=== PATIENT | female | born 1985 | race Caucasian/White ===

== ENCOUNTER 2017-04-03 19:36 | Emergency (ER) | payer OTHER ==
[~2017-04-03] VITALS: Ht 160 cm; Wt 45.4 kg
[~2017-04-03 19:36] MED LIST: BENZ100C PO; CYCL10TA2 PO; HYDR-971 PO; NAPR500T PO
[2017-04-03 19:44] VITALS: BP 113/71
--- NOTE | 2017-04-03 19:49 | PHYS DOC ---
Past Medical History Past Medical History: Kidney Stone Past Surgical History: No Surgical History Alcohol Use: None Drug Use: None Adult General Chief Complaint Chief Complaint: FOOT INJURY PAIN HPI HPI Patient is a 31 year old female presents to the emergency department with complaints of left foot pain. She states yesterday a cinder block fell from a fence and struck her on the dorsal aspect of the foot. States she's been ambulatory and extremity since that time but it is with great pain if she is walking in and normal gait pattern. She states the pain lessens when she is walking on the ball of her foot. Review of Systems Review of Systems Constitutional: Denies fever or chills [] Eyes: Denies change in visual acuity, redness, or eye pain [] HENT: Denies nasal congestion or sore throat [] Respiratory: Denies cough or shortness of breath [] Cardiovascular: No additional information not addressed in HPI [] GI: Denies abdominal pain, nausea, vomiting, bloody stools or diarrhea [] : Denies dysuria or hematuria [] Musculoskeletal: Left foot pain Integument: Denies rash or skin lesions [] Neurologic: Denies headache, focal weakness or sensory changes [] Endocrine: Denies polyuria or polydipsia [] Current Medications Current Medications Current Medications Medications (Trade) Dose Ordered Sig/Laura Start Time Stop Time Status Last Admin Dose Admin Ketorolac Tromethamine (Toradol Im) 60 mg 1X ONCE 04/03/17 20:00 04/03/17 20:01 DC 04/03/17 20:13 60 MG Allergies Allergies Allergies Coded Allergies Type Severity Reaction Last Updated Verified cephalexin Allergy Unknown Nausea and Vomiting 08/30/14 No Physical Exam Physical Exam Constitutional: Well developed, well nourished, no acute distress, non-toxic appearance. [] Neck: Normal range of motion, no tenderness, supple, no stridor. [] Cardiovascular:Heart rate regular rhythm, no murmur [] Lungs & Thorax: Bilateral breath sounds clear to auscultation [] Skin: Warm, dry, no erythema, no rash. [] Extremities: Left lower extremity exam: Left knee exam unremarkable, left ankle exam unremarkable, mild tenderness to palpate over the dorsal aspect, proximal on the foot. There is no evidence of trauma. The remainder of exam unremarkable. Neurovascular intact distally. Neurologic: Alert and oriented X 3, normal motor function, normal sensory function, no focal deficits noted. [] Current Patient Data Vital Signs Vital Signs Date Time Temp Pulse Resp B/P (MAP) Pulse Ox O2 Delivery O2 Flow Rate FiO2 04/03/17 19:44 97.9 89 16 99 Room Air 97.9 EKG EKG [] Radiology/Procedures Radiology/Procedures Right foot x-ray, no acute bony changes[] Course & Med Decision Making Course & Med Decision Making In an Jose R bandage, right foot by nursing staff. Tolerated procedure well. Pertinent Labs and Imaging studies reviewed. (See chart for details) [] Dragon Disclaimer Dragon Disclaimer This electronic medical record was generated, in whole or in part, using a voice recognition dictation system. Departure Departure Impression: Primary Impression: Contusion, foot Disposition: 01 HOME, SELF-CARE Condition: STABLE Referrals: UNKNOWN PCP NAME (PCP) [facility] Patient Instructions: Contusion, RICE - Routine Care for Injuries Scripts Naproxen (NAPROSYN) 500 Mg Tablet 500 MG PO BID Y for PAIN, #20 TAB Prov: BLANCA KOHLI APRN 04/03/17 Problem Qualifiers Primary Impression: Contusion, foot Encounter type: initial encounter Laterality: right Qualified Codes: S90.31XA - Contusion of right foot, initial encounter BLANCA KOHLI APRN Apr 03, 2017 19:49
[2017-04-03] MEDS ORDERED: KETOROLAC TROMETHAMINE 60 MG/2 ML INJ. IM ONE (20:00)
[2017-04-03] MEDS ORDERED: NAPR500T PO (20:17)
--- NOTE | 2017-04-04 08:47 | RAD ---
Indication injury. Pain. AP oblique and lateral views of the left foot were obtained. There is some soft tissue swelling laterally at the metatarsal phalangeal joint of the small toe. No bony abnormality is seen
== END 2017-04-03 20:28 | disposition home or self-care (01) ==
LOC: ER 19:36
DX: S90.32XA Contusion of left foot, initial encounter (principal); Z87.442 Personal history of urinary calculi; Z88.1 Allergy status to other antibiotic agents; W20.8XXA Other cause of strike by thrown, projected or falling object, initial encounter; Y93.89 Activity, other specified; Y92.89 Other specified places as the place of occurrence of the external cause; Y99.8 Other external cause status
CPT/HCPCS: 73630; 96372; 99284; J1885

== ENCOUNTER 2017-05-29 19:09 | Emergency (ER) | payer SELFPAY ==
[~2017-05-29] VITALS: Ht 157.5 cm; Wt 45.4 kg
--- NOTE | 2017-05-29 19:56 | PHYS DOC ---
Past Medical History Past Medical History: Depression Past Surgical History: No Surgical History Alcohol Use: None Drug Use: None Adult General Chief Complaint Chief Complaint: MULTIPLE COMPLAINTS HPI HPI Patient is a 31 year old female who presents with substernal chest pain that goes to her left jaw and down her left arm. She states this started around 3 - 4:00 pm tonight, she states the pain it comes and goes, it is made worse with deep breathing. She does feel short of breath with ambulation. She denies any calf pain or tenderness. She does smoke a pack a day she's in that since the age of 18. She states her dad has a history of heart disease but unsure what kind and when it started. She denies any being on any medications. Review of Systems Review of Systems Constitutional: Denies fever or chills Eyes: Denies change in visual acuity, redness, or eye pain HENT: Denies nasal congestion or sore throat Respiratory: Denies cough or shortness of breath Cardiovascular: No additional information not addressed in HPI GI: Denies abdominal pain, nausea, vomiting, bloody stools or diarrhea : Denies dysuria or hematuria Musculoskeletal: Denies back pain or joint pain Integument: Denies rash or skin lesions Neurologic: Denies headache, focal weakness or sensory changes Endocrine: Denies polyuria or polydipsia Current Medications Current Medications Current Medications Medications (Trade) Dose Ordered Sig/Laura Start Time Stop Time Status Last Admin Dose Admin Info (Do NOT chart on this entry -- for MONITORING) 1 each PRN DAILY PRN 05/29/17 20:15 05/31/17 20:14 Iohexol (Omnipaque 300 Mg/ml) 75 ml 1X ONCE 05/29/17 20:15 05/29/17 20:16 DC 05/29/17 20:59 75 ML Ondansetron HCl (Zofran) 4 mg 1X ONCE 05/29/17 20:45 05/29/17 20:46 DC 05/29/17 20:53 4 MG Promethazine HCl/ Codeine (Phenergan With Codeine) 5 ml 1X ONCE 05/29/17 23:15 05/29/17 23:16 Allergies Allergies Allergies Coded Allergies Type Severity Reaction Last Updated Verified cephalexin Adverse Reaction Unknown Nausea and Vomiting 05/29/17 No Physical Exam Physical Exam Constitutional: Well developed, well nourished, no acute distress, non-toxic appearance. HENT: Normocephalic, atraumatic, bilateral external ears normal, oropharynx moist, no oral exudates, nose normal. Eyes: PERRLA, EOMI, conjunctiva normal, no discharge. Neck: Normal range of motion, no tenderness, supple, no stridor. Cardiovascular:Heart rate regular rhythm, no murmur, Lungs & Thorax: Bilateral breath sounds clear to auscultation, tender palpation over the chest wall Abdomen: Bowel sounds normal, soft, no tenderness, no masses, no pulsatile masses. Skin: Warm, dry, no erythema, no rash. Back: No tenderness, no CVA tenderness. Extremities: No tenderness, no cyanosis, no clubbing, ROM intact, no edema. Neurologic: Alert and oriented X 3, normal motor function, normal sensory function, no focal deficits noted. Psychologic: Affect normal, judgement normal, mood normal. Current Patient Data Vital Signs Vital Signs Date Time Temp Pulse Resp B/P (MAP) Pulse Ox O2 Delivery O2 Flow Rate FiO2 05/29/17 21:42 54 21 105/59 (74) 97 05/29/17 19:33 98.2 Room Air 98.2 Lab Values Laboratory Tests Test 05/29/17 19:30 05/29/17 20:08 Urine Collection Type Unknown Urine Color Jennifer Urine Clarity Clear Urine pH 6.0 Urine Specific [place] >=1.030 Urine Protein 30 mg/dL (NEG-TRACE) Urine Glucose (UA) Negative mg/dL (NEG) Urine Ketones (Stick) Negative mg/dL (NEG) Urine Blood Small (NEG) Urine Nitrite Negative (NEG) Urine Bilirubin Small (NEG) Urine Urobilinogen Dipstick 1.0 mg/dL (0.2 mg/dL) Urine Leukocyte Esterase Negative (NEG) Urine RBC 6-10 /HPF (0-2) Urine WBC Occ /HPF (0-4) Urine Squamous Epithelial Cells Few /LPF Urine Bacteria Few /HPF (0-FEW) Urine Mucus Marked /LPF Urine Opiates Screen Neg (NEG) Urine Methadone Screen Neg (NEG) Urine Barbiturates Neg (NEG) Urine Phencyclidine Screen Neg (NEG) Urine Amphetamine/Methamphetamine Neg (NEG) Urine Benzodiazepines Screen Neg (NEG) Urine Cocaine Screen Neg (NEG) Urine Cannabinoids Screen Neg (NEG) Urine Ethyl Alcohol Neg (NEG) White Blood Count 6.9 x10^3/uL (4.0-11.0) Red Blood Count 4.53 x10^6/uL (3.50-5.40) Hemoglobin 13.7 g/dL (12.0-15.5) Hematocrit 40.4 % (36.0-47.0) Mean Corpuscular Volume 89 fL (79-100) Mean Corpuscular Hemoglobin 30 pg (25-35) Mean Corpuscular Hemoglobin Concent 34 g/dL (31-37) Red Cell Distribution Width 13.7 % (11.5-14.5) Platelet Count 254 x10^3/uL (140-400) Neutrophils (%) (Auto) 47 % (31-73) Lymphocytes (%) (Auto) 40 % (24-48) Monocytes (%) (Auto) 7 % (0-9) Eosinophils (%) (Auto) 6 % (0-3) H Basophils (%) (Auto) 1 % (0-3) Neutrophils # (Auto) 3.2 x10^3uL (1.8-7.7) Lymphocytes # (Auto) 2.7 x10^3/uL (1.0-4.8) Monocytes # (Auto) 0.5 x10^3/uL (0.0-1.1) Eosinophils # (Auto) 0.4 x10^3/uL (0.0-0.7) Basophils # (Auto) 0.0 x10^3/uL (0.0-0.2) Prothrombin Time 13.1 SEC (11.7-14.0) Prothrombin Time INR 1.1 (0.8-1.1) Sodium Level 142 mmol/L (136-145) Potassium Level 4.0 mmol/L (3.5-5.1) Chloride Level 106 mmol/L (98-107) Carbon Dioxide Level 30 mmol/L (21-32) Anion Gap 6 (6-14) Blood Urea Nitrogen 8 mg/dL (7-20) Creatinine 0.8 mg/dL (0.6-1.0) Estimated GFR (Cockcroft-Gault) 83.7 Glucose Level 91 mg/dL (70-99) Lactic Acid Level 1.0 mmol/L (0.4-2.0) Calcium Level 8.9 mg/dL (8.5-10.1) Magnesium Level 2.0 mg/dL (1.8-2.4) Total Bilirubin 0.4 mg/dL (0.2-1.0) Direct Bilirubin 0.1 mg/dL (0.0-0.2) Aspartate Amino Transferase (AST) 12 U/L (15-37) L Alanine Aminotransferase (ALT) 24 U/L (14-59) Alkaline Phosphatase 72 U/L (46-116) Creatine Kinase 70 U/L (26-192) Creatine Kinase MB (Mass) < 0.5 ng/mL (0.0-3.6) Creatine Kinase MB Relative Index % (0-4) Troponin I Quantitative < 0.017 ng/mL (0.000-0.055) GN-Mgn-X-Type Natriuretic Peptide 71 pg/mL (0-124) Total Protein 7.2 g/dL (6.4-8.2) Albumin 4.2 g/dL (3.4-5.0) Lipase 111 U/L (73-393) Thyroid Stimulating Hormone (TSH) 3.574 uIU/mL (0.358-3.74) Serum Test, Qualitative Negative (NEG) Laboratory Tests 05/29/17 20:08 Laboratory Tests 05/29/17 20:08 EKG EKG EKG shows sinus rhythm with rate of [address] elevations Romy T- wave inversions noted in aVL, right axis deviation noted, QTC 450 ms, as interpreted by me. Radiology/Procedures Radiology/Procedures CT chest Impression: 1. No evidence of pulmonary embolism. 2. No significant findings. [] Impressions: Chest pain Course & Med Decision Making Course & Med Decision Making Pertinent Labs and Imaging studies reviewed. (See chart for details) EKG doesn't show acute abnormalities other than T-wave inversions in aVL, she does have a history of smoking and family history of disease, unsure at what age her dad developed heart disease and what type specifically. CT angios of her chest is pending at this time. Patient's being checked out to Dr. Nj for final disposition. She is in stable condition this time. [id number] patient seen and evaluated by me, imaging or lab results discussed with the patient, patient agrees to follow-up as directed. GEN: Patient in no distress, alert and oriented 3. HEENT: Normocephalic, atraumatic, anicteric, trachea midline, neck supple, no LAD, no meningeal signs. CV: RRR, equal pulses, normal perfusion. Diffuse tenderness to palpation right chest wall, palpation reproduces the symptoms. LUNGS: Last set auscultation bilaterally, no tachypnea ABD: Soft, nontender, nondistended BACK nontender, normal alignment, no step-offs EXTR: No edema, no swelling, no deformity, no signs of DVT. NEURO: No focal neurological deficits PSYCH: Cooperative, normal mood. SKIN: No rashes, no lesions Patient is in no distress, vital signs are unremarkable, workup in the ED is unremarkable. The pain the patient is experiencing is very reproducible to palpation. Given the mostly unremarkable exam in the ED and the lack of significant findings I do not believe that the patient at the time of the ED evaluation is in further need of inpatient evaluation and she is stable for outpatient follow-up and reexamination and reevaluation. Patient has agreed to follow up as directed Dragon Disclaimer Dragon Disclaimer This electronic medical record was generated, in whole or in part, using a voice recognition dictation system. Departure Departure Impression: Primary Impression: Chest wall pain Disposition: HOME, SELF-CARE Condition: STABLE Referrals: UNKNOWN PCP NAME (PCP) You told us you have a PCP to follow up with please do so for recheck and reevaluation in 2 days for recheck and reevaluation Patient Instructions: Chest Pain (Nonspecific) Scripts Naproxen (NAPROXEN) 375 Mg Tablet 1 TAB PO TID, #20 TAB 0 Refills Prov: Estuardo NJ MD 05/29/17 RAGINI KOHLER MD May 29, 2017 19:55 Estuardo NJ MD May 29, 2017 22:41
[2017-05-29 19:58] LABS: BILIRUBIN,URINE SMALL (NEG); GLUCOSE,URINE NEGATIVE (NEG); NITRITE,URINE NEGATIVE (NEG); PROTEIN,URINE 30 mg/dL (NEG-TRACE)
[2017-05-29 20:04] LABS: BARBITURATES NEG (NEG); BENZODIAZEPINES NEG (NEG); CANNABINOIDS NEG (NEG); COCAINE NEG (NEG); METHADONE NEG (NEG); OPIATES NEG (NEG); PHENCYCLIDINE NEG (NEG)
[2017-05-29 20:15] LABS: BACTERIA,URINE FEW /HPF (0-FEW); SQUAMOUS EPITHELIAL CELL,UR FEW /LPF; WBC,URINE OCC /HPF (0-4)
[2017-05-29] MEDS ORDERED: IOHEXOL 300 MG/ML 75 ML VIAL IV ONE (20:15)
[2017-05-29] MEDS ORDERED: CONTRAST GIVEN MC PRN (20:15)
[2017-05-29 20:21] LABS: BASO % 1 % (0-3); EOS % 6 % (0-3); HEMATOCRIT 40.4 % (36.0-47.0); HEMOGLOBIN 13.7 g/dL (12.0-15.5); LYMPH # 2.7 x10^3/uL (1.0-4.8); LYMPH % 40 % (24-48); MEAN CORPUSCULAR HEMOGLOBIN 30 pg (25-35); MEAN CORPUSCULAR HGB CONC 34 g/dL (31-37); MEAN CORPUSCULAR VOLUME 89 fL (79-100); MONO % 7 % (0-9); NEUT % 47 % (31-73); PLATELET COUNT 254 x10^3/uL (140-400); RED BLOOD COUNT 4.53 x10^6/uL (3.50-5.40); RED CELL DISTRIBUTION WIDTH 13.7 % (11.5-14.5); WHITE BLOOD COUNT 6.9 x10^3/uL (4.0-11.0)
[2017-05-29 20:30] LABS: INR 1.1 (0.8-1.1); PROTHROMBIN TIME PATIENT 13.1 SEC (11.7-14.0)
[2017-05-29 20:32] LABS: NEG OBC SER NEG; POS OBC SER POS
[2017-05-29 20:34] LABS: CALCIUM 8.9 mg/dL (8.5-10.1); CREATININE 0.8 mg/dL (0.6-1.0); GFR 83.7
[2017-05-29 20:40] LABS: ALBUMIN 4.2 g/dL (3.4-5.0); DIRECT BILIRUBIN 0.1 mg/dL (0.0-0.2); TOTAL BILIRUBIN 0.4 mg/dL (0.2-1.0); TOTAL PROTEIN 7.2 g/dL (6.4-8.2)
[2017-05-29] MEDS ORDERED: ONDANSETRON PF 4 MG/2 ML VIAL. IV ONE (20:45)
[2017-05-29 20:48] LABS: CKMB MASS < 0.5 ng/mL (0.0-3.6); CREATINE KINASE 70 U/L (26-192)
--- NOTE | 2017-05-29 21:36 | RAD ---
CTA Chest with contrast: Clinical History: SUDDEN ONSET R FACE TINGLING BILAT ARM NUMBNESS MIDSTERNAL CP AND R JAW PAIN INJ 75ML OMNI 300 NO PREV Shortness of breath. Axial helical images of the chest were obtained after the administration of 75 cc of IV Omni 300 and timed appropriately for a pulmonary arterial study. Conventional axial reconstruction was performed in addition to coronal, sagittal and bilateral oblique MIP (maximum intensity projection). This study was ordered to detect possible pulmonary embolism. There are no filling defects to suggest pulmonary embolism. The lungs and pleural margins are clear. There is no mediastinal or hilar lymphadenopathy. The thoracic aorta appears normal. Impression: 1. No evidence of pulmonary embolism. 2. No significant findings. PQRS Compliance Statement: One or more of the following individualized dose reduction techniques were utilized for this examination: 1. Automated exposure control 2. Adjustment of the mA and/or kV according to patient size 3. Use of iterative reconstruction technique Electronically signed by: Thom Blanc III, MD (05/29/2017 9:32 PM) [id number]
[2017-05-29] MEDS ORDERED: NAPR-695 PO (23:02)
[2017-05-29] MEDS ORDERED: PROMETH/CODEINE 6.25/10MG 5 ML SYRUP. PO ONE (23:15)
[2017-05-29 23:28] VITALS: BP 160/73
--- NOTE | 2017-05-30 08:25 | RAD ---
AP chest. History: Chest pain AP view was taken of the chest. Lungs are clear. There is a granuloma on the left. Heart is normal in size. There is no effusion. Impression: 1. No acute chest disease.
--- NOTE | 2017-05-30 10:09 | EKG ---
[facility] [address] [place] [address] Test Date: 2017-05-29 Test Time: 19:42:09 Pat Name: TORI CAPUTO Department: Room: Gender: F [employer]: : 1985 Requested By: RAGINI KOHLER Order Number: [id number] Reading MD: Measurements Intervals [place] Rate: 67 P: 90 MN: 178 QRS: 91 QRSD: 80 T: 129 QT: 390 QTc: 415 Interpretive Statements SINUS RHYTHM RIGHTWARD AXIS QRS(T) CONTOUR ABNORMALITY CONSIDER HIGH LATERAL INFARCT RI6.01 Unconfirmed report No previous ECG available for comparison
== END 2017-05-29 23:28 | disposition home or self-care (01) ==
LOC: ER 19:09
DX: R07.89 Other chest pain (principal); R06.02 Shortness of breath; I51.9 Heart disease, unspecified; F32.9 Major depressive disorder, single episode, unspecified; F17.210 Nicotine dependence, cigarettes, uncomplicated; Z88.1 Allergy status to other antibiotic agents
CPT/HCPCS: 36415; 71010; 71275; 80048; 80076; 80307; 81001; 82553; 83605; 83690; 83735; 83880; 84443; 84484; 84703; 85025; 85610; 93005; 96374; 99285; J2405; Q9967; G0479

== ENCOUNTER 2018-11-05 17:58 | Emergency (ER) | payer SELFPAY ==
[~2018-11-05] VITALS: Ht 162.6 cm; Wt 45.4 kg
[~2018-11-05 17:58] MED LIST changes: +HYDR-3164 PO; -HYDR-971 PO; +NAPR-683 PO; +NAPR-695 PO; -NAPR500T PO
--- NOTE | 2018-11-05 18:59 | PHYS DOC ---
Past Medical History Past Medical History: Depression Past Surgical History: No Surgical History Alcohol Use: None Drug Use: None Adult General Chief Complaint Chief Complaint: FLANK PAIN HPI HPI Patient is a 33 yo female w/ personal and family hx of kidney stones who presents with complaint of left sided back pain. She reports she has felt the pain for about a week, however today the pain became significantly worse (9/10) . She describes the pain as a lancinating, stabbing pain that feels similar to previous kidney stones (last stone 2-3 months prior). She says the pain begins on the left flank and radiates around her abdomen and into the left side of her groin. She reports she is having trouble starting her stream, but denies dysuria or hematuria. Also denies problems with bowel movements. Reports nausea and vomiting for the past 24 hrs. She reports she has never required inpatient treatment for her kidney stones. She also reports she has a history of ovarian cysts, but says the cyst pain feels like dull constant pain. She denies hx of trauma to her back or flank. She reports FDLMP around 10/13/18. She reports she is a heavy smoker although she is trying to quit. She denies drug use. Admits occasional etoh use. Review of Systems Review of Systems Constitutional: Denies fever or chills [] Respiratory: Denies cough or shortness of breath [] Cardiovascular: Denies chest pain, denies palpitations GI: Denies abdominal pain. Admits nausea, vomiting. : Denies dysuria or hematuria. Admits difficulty with urinating Musculoskeletal: Admits left sided flank pain that radiates around torso into groin. All other systems were reviewed and found to be within normal limits, except as documented in this note. Current Medications Current Medications Current Medications Medications (Trade) Dose Ordered Sig/Laura Start Time Stop Time Status Last Admin Dose Admin Ketorolac Tromethamine (Toradol 15mg Vial) 15 mg 1X ONCE 11/05/18 19:00 11/05/18 19:03 DC 11/05/18 19:25 15 MG Ondansetron HCl (Zofran) 4 mg 1X ONCE 11/05/18 19:00 11/05/18 19:03 DC 11/05/18 19:25 4 MG Sodium Chloride 1,000 ml @ 1,000 mls/hr 1X ONCE 11/05/18 19:00 11/05/18 19:59 DC 11/05/18 19:25 1,000 MLS/HR Allergies Allergies Allergies Coded Allergies Type Severity Reaction Last Updated Verified cephalexin Adverse Reaction Unknown Nausea and Vomiting 05/29/17 No Physical Exam Physical Exam Constitutional: Well developed, well nourished, no acute distress, non-toxic appearance. [] HENT: Normocephalic, atraumatic Cardiovascular:Heart rate regular rhythm, no murmur [] Lungs & Thorax: Bilateral breath sounds clear to auscultation [] Abdomen: oft, no tenderness, no masses Skin: Warm, dry, no erythema, no rash. [] Back: Mildly tender to light palpation L CVA. Extremities: No tenderness, no cyanosis, no clubbing, Neurologic: Alert and oriented X 3 Current Patient Data Vital Signs Vital Signs Date Time Temp Pulse Resp B/P (MAP) Pulse Ox O2 Delivery O2 Flow Rate FiO2 11/05/18 21:00 60 16 99/50 (66) 98 Room Air 11/05/18 18:36 98.1 98.1 Lab Values Laboratory Tests Test 11/05/18 18:40 11/05/18 18:48 11/05/18 19:05 Urine Collection Type Unknown Urine Color Dk yellow Urine Clarity Clear Urine pH 5.5 Urine Specific [place] >=1.030 Urine Protein 30 mg/dL (NEG-TRACE) Urine Glucose (UA) Negative mg/dL (NEG) Urine Ketones (Stick) Trace mg/dL (NEG) Urine Blood Moderate (NEG) Urine Nitrite Negative (NEG) Urine Bilirubin Small (NEG) Urine Urobilinogen Dipstick 1.0 mg/dL (0.2 mg/dL) Urine Leukocyte Esterase Negative (NEG) Urine RBC 3-5 /HPF (0-2) Urine WBC Rare /HPF (0-4) Urine Squamous Epithelial Cells Mod /LPF Urine Bacteria Few /HPF (0-FEW) Urine Mucus Marked /LPF POC Urine HCG, Qualitative Hcg negative (Negative) White Blood Count 8.5 x10^3/uL (4.0-11.0) Red Blood Count 5.00 x10^6/uL (3.50-5.40) Hemoglobin 15.3 g/dL (12.0-15.5) Hematocrit 45.0 % (36.0-47.0) Mean Corpuscular Volume 90 fL (79-100) Mean Corpuscular Hemoglobin 31 pg (25-35) Mean Corpuscular Hemoglobin Concent 34 g/dL (31-37) Red Cell Distribution Width 14.1 % (11.5-14.5) Platelet Count 213 x10^3/uL (140-400) Neutrophils (%) (Auto) 78 % (31-73) H Lymphocytes (%) (Auto) 14 % (24-48) L Monocytes (%) (Auto) 7 % (0-9) Eosinophils (%) (Auto) 1 % (0-3) Basophils (%) (Auto) 0 % (0-3) Neutrophils # (Auto) 6.7 x10^3uL (1.8-7.7) Lymphocytes # (Auto) 1.2 x10^3/uL (1.0-4.8) Monocytes # (Auto) 0.6 x10^3/uL (0.0-1.1) Eosinophils # (Auto) 0.1 x10^3/uL (0.0-0.7) Basophils # (Auto) 0.0 x10^3/uL (0.0-0.2) Sodium Level 141 mmol/L (136-145) Potassium Level 3.9 mmol/L (3.5-5.1) Chloride Level 101 mmol/L (98-107) Carbon Dioxide Level 28 mmol/L (21-32) Anion Gap 12 (6-14) Blood Urea Nitrogen 10 mg/dL (7-20) Creatinine 0.6 mg/dL (0.6-1.0) Estimated GFR (Cockcroft-Gault) 115.1 BUN/Creatinine Ratio 17 (6-20) Glucose Level 99 mg/dL (70-99) Calcium Level 9.2 mg/dL (8.5-10.1) Total Bilirubin 0.9 mg/dL (0.2-1.0) Aspartate Amino Transferase (AST) 17 U/L (15-37) Alanine Aminotransferase (ALT) 15 U/L (14-59) Alkaline Phosphatase 79 U/L (46-116) Total Protein 7.8 g/dL (6.4-8.2) Albumin 4.2 g/dL (3.4-5.0) Albumin/Globulin Ratio 1.2 (1.0-1.7) Laboratory Tests 11/05/18 19:05 Laboratory Tests 11/05/18 19:05 EKG EKG [] Radiology/Procedures Radiology/Procedures [PROCEDURE: CT ABDOMEN PELVIS WO CONTRAST CT ABDOMEN PELVIS WO CONTRAST Indication: left flank pain. Exposure: One or more of the following individualized dose reduction techniques were utilized for this examination: 1. Automated exposure control 2. Adjustment of the mA and/or kV according to patient size 3. Use of iterative reconstruction technique. Comparison: None Technique: No intravenous contrast given. No oral contrast per request. Findings: Evaluation of solid viscera, bowel and vasculature is compromised by the noncontrast technique. Lung bases are clear. Liver and spleen are unremarkable. Pancreas is difficult to distinguish from adjacent unopacified bowel, particularly at the pancreatic head. No evidence of adrenal mass. No evidence of hydronephrosis or urolithiasis. No calcified gallstone. Aorta is nonaneurysmal. No significant lymph node enlargement. No evidence of significant small bowel distention. No evidence of acute colitis. Mild stool throughout colon. Appendix is probably within normal limits. No evidence of ascites or pneumoperitoneum. Urinary bladder not adequately distended for evaluation. No significant pelvic mass. Vertebral body height and alignment are within normal limits. IMPRESSION: No acute findings. No evidence of obstructive urinary tract calculus. Electronically signed by: Frank Patterson MD (11/05/2018 8:17 PM) [facility] DICTATED and SIGNED BY: FRANK PATTERSON MD DATE: 11/05/18 2017] Course & Med Decision Making Course & Med Decision Making Patient is a 33 yo female who presents with complaint of left flank pain radiating to her groin that has steadily worsened for 1 week. She reports that last night she vomited several times and noticed her back pain worsening. She had a kidney stone diagnosed at [facility] 2 months prior and says this pain feels the same as that episode. On physical exam patient's vitals are unremarkable and patient is mildly tender to palpation L flank around CVA. Labs are unremarkable. CT abd/pelvis unremarkable. Patient diagnosed with flank pain. Discussed with patient that pain was likely musculoskeletal in origin. Discussed with patient the plan to DC home with rx for flexeril for pain, zofran for nausea, and that patient should intermittently ice the area. Also advised patient that she could take advil or ibuprofen to help alleviate pain. Patient was advised to follow up with PCP. Also advised patient to return to ED if symptoms worsen. Patient verbalized understanding and agreement with plan. Dragon Disclaimer Dragon Disclaimer This electronic medical record was generated, in whole or in part, using a voice recognition dictation system. Departure Departure Impression: Primary Impression: Back pain Disposition: HOME, SELF-CARE Condition: STABLE Referrals: UNKNOWN PCP NAME (PCP) Scripts Ibuprofen (IBUPROFEN) 600 Mg Tablet 600 MG PO PRN Q6HRS PRN for PAIN, #20 TAB take with food or milk Prov: VANDA HUNG MD 11/05/18 Cyclobenzaprine Hcl (CYCLOBENZAPRINE HCL) 5 Mg Tablet 5 MG PO PRN TID PRN for PAIN, #15 TAB Prov: VANDA HUNG MD 11/05/18 VANDA HUNG MD Nov 05, 2018 18:59
[2018-11-05] MEDS ORDERED: KETOROLAC 15 MG/ML VIAL. IV ONE (19:00)
[2018-11-05] MEDS ORDERED: ONDANSETRON PF 4 MG/2 ML VIAL. IV ONE (19:00)
[2018-11-05] MEDS ORDERED: IV NORMAL SALINE 1000ML BAG 1,000 ML IV ONE (19:00)
[2018-11-05 19:08] LABS: BILIRUBIN,URINE SMALL (NEG); CLARITY,URINE CLEAR; NITRITE,URINE NEGATIVE (NEG); PH,URINE 5.5; PROTEIN,URINE 30 mg/dL (NEG-TRACE)
[2018-11-05 19:13] LABS: COLOR,URINE DK YELLOW
[2018-11-05 19:14] LABS: BACTERIA,URINE FEW /HPF (0-FEW); SQUAMOUS EPITHELIAL CELL,UR MOD /LPF; WBC,URINE RARE /HPF (0-4)
[2018-11-05 19:21] LABS: BASO % 0 % (0-3); EOS # 0.1 x10^3/uL (0.0-0.7); EOS % 1 % (0-3); HEMOGLOBIN 15.3 g/dL (12.0-15.5); LYMPH # 1.2 x10^3/uL (1.0-4.8); LYMPH % 14 % (24-48); MEAN CORPUSCULAR HEMOGLOBIN 31 pg (25-35); MEAN CORPUSCULAR HGB CONC 34 g/dL (31-37); MEAN CORPUSCULAR VOLUME 90 fL (79-100); MONO # 0.6 x10^3/uL (0.0-1.1); MONO % 7 % (0-9); NEUT # 6.7 x10^3uL (1.8-7.7); NEUT % 78 % (31-73); PLATELET COUNT 213 x10^3/uL (140-400); RED CELL DISTRIBUTION WIDTH 14.1 % (11.5-14.5); WHITE BLOOD COUNT 8.5 x10^3/uL (4.0-11.0)
[2018-11-05 19:30] LABS: CALCIUM 9.2 mg/dL (8.5-10.1); CREATININE 0.6 mg/dL (0.6-1.0); GFR 115.1; POTASSIUM 3.9 mmol/L (3.5-5.1)
[2018-11-05 19:36] LABS: ALBUMIN 4.2 g/dL (3.4-5.0); ALBUMIN/GLOBULIN RATIO 1.2 (1.0-1.7); TOTAL BILIRUBIN 0.9 mg/dL (0.2-1.0); TOTAL PROTEIN 7.8 g/dL (6.4-8.2)
--- NOTE | 2018-11-05 20:20 | RAD ---
CT ABDOMEN PELVIS WO CONTRAST Indication: left flank pain. Exposure: One or more of the following individualized dose reduction techniques were utilized for this examination: 1. Automated exposure control 2. Adjustment of the mA and/or kV according to patient size 3. Use of iterative reconstruction technique. Comparison: None Technique: No intravenous contrast given. No oral contrast per request. Findings: Evaluation of solid viscera, bowel and vasculature is compromised by the noncontrast technique. Lung bases are clear. Liver and spleen are unremarkable. Pancreas is difficult to distinguish from adjacent unopacified bowel, particularly at the pancreatic head. No evidence of adrenal mass. No evidence of hydronephrosis or urolithiasis. No calcified gallstone. Aorta is nonaneurysmal. No significant lymph node enlargement. No evidence of significant small bowel distention. No evidence of acute colitis. Mild stool throughout colon. Appendix is probably within normal limits. No evidence of ascites or pneumoperitoneum. Urinary bladder not adequately distended for evaluation. No significant pelvic mass. Vertebral body height and alignment are within normal limits. IMPRESSION: No acute findings. No evidence of obstructive urinary tract calculus. Electronically signed by: Frank Patterson MD (11/05/2018 8:17 PM) [facility]
[2018-11-05 21:00] VITALS: BP 99/50
[2018-11-05] MEDS ORDERED: IBUP-1007 PO (21:03)
[2018-11-05] MEDS ORDERED: CYCL5TAB PO (21:03)
== END 2018-11-05 21:10 | disposition home or self-care (01) ==
LOC: ER 17:58
DX: M54.9 Dorsalgia, unspecified (principal); R10.9 Unspecified abdominal pain; R39.198 Other difficulties with micturition; R11.2 Nausea with vomiting, unspecified; F32.9 Major depressive disorder, single episode, unspecified; Z88.1 Allergy status to other antibiotic agents
CPT/HCPCS: 36415; 74176; 80053; 81001; 81025; 85025; 96361; 96374; 96375; 99284; J1885; J2405; J7030

== ENCOUNTER 2019-04-17 11:16 | Emergency (ER) | payer SELFPAY ==
[~2019-04-17] VITALS: Ht 160 cm; Wt 45.4 kg
[~2019-04-17 11:16] MED LIST changes: +CYCL5TAB PO; +IBUP-1007 PO
[2019-04-17 11:19] VITALS: BP 115/70
[2019-04-17] MEDS ORDERED: AMOX1TAB61 PO (11:53)
--- NOTE | 2019-04-17 11:54 | PHYS DOC ---
Past Medical History Past Medical History: Depression, Other Additional Past Medical Histor: DENTAL CARIES Past Surgical History: No Surgical History Additional Information: 1 PPD Alcohol Use: None Drug Use: None Adult General Chief Complaint Chief Complaint: FACE PROBLEM HPI HPI Patient is a 33 year old female that presents with facial swelling that started this morning on her left side. The patient states that she's been having dental pain left lower part of the mouth. She rates her pain as 9 out of 10 in severity and states it sharp. Review of Systems Review of Systems Constitutional: Denies fever or chills [] Eyes: Denies change in visual acuity, redness, or eye pain [] HENT: Reports dental pain and left sided facial swelling. Respiratory: Denies cough or shortness of breath [] Cardiovascular: No additional information not addressed in HPI [] GI: Denies abdominal pain, nausea, vomiting, bloody stools or diarrhea [] : Denies dysuria or hematuria [] Musculoskeletal: Denies back pain or joint pain [] Integument: Denies rash or skin lesions [] Neurologic: Denies headache, focal weakness or sensory changes [] Endocrine: Denies polyuria or polydipsia [] Complete systems were reviewed and found to be within normal limits, except as documented in this note. Current Medications Current Medications Current Medications Medications (Trade) Dose Ordered Sig/[facility] Start Time Stop Time Status Last Admin Dose Admin Ketorolac Tromethamine (Toradol Im) 30 mg 1X ONCE 04/17/19 12:00 04/17/19 12:01 UNV Lidocaine HCl (Viscous Lidocaine) 15 ml 1X ONCE 04/17/19 12:00 04/17/19 12:01 UNV Allergies Allergies Allergies Coded Allergies Type Severity Reaction Last Updated Verified cephalexin Adverse Reaction Unknown Nausea and Vomiting 05/29/17 No Physical Exam Physical Exam Constitutional: Well developed, well nourished, no acute distress, non-toxic appearance. [] HENT: Normocephalic, atraumatic, bilateral external ears normal, oropharynx moist, no oral exudates, nose normal. Has broken tooth and dental abscess in tooth 18, has mild left sided facial edema. Eyes: PERRLA, EOMI, conjunctiva normal, no discharge. [] Neck: Normal range of motion, no tenderness, supple, no stridor. [] Cardiovascular:Heart rate regular rhythm, no murmur [] Lungs & Thorax: Bilateral breath sounds clear to auscultation [] Abdomen: Bowel sounds normal, soft, no tenderness, no masses, no pulsatile masses. [] Skin: Warm, dry, no erythema, no rash. [] Back: No tenderness, no CVA tenderness. [] Extremities: No tenderness, no cyanosis, no clubbing, ROM intact, no edema. [] Neurologic: Alert and oriented X 3, normal motor function, normal sensory function, no focal deficits noted. [] Psychologic: Affect normal, judgement normal, mood normal. [] Current Patient Data Vital Signs Vital Signs Date Time Temp Pulse Resp B/P (MAP) Pulse Ox O2 Delivery O2 Flow Rate FiO2 04/17/19 11:19 98.5 75 19 115/70 (85) 99 Room Air 98.5 EKG EKG [] Radiology/Procedures Radiology/Procedures [] Course & Med Decision Making Course & Med Decision Making Pertinent Labs and Imaging studies reviewed. (See chart for details) Will give Toradol and lidocaine in ER. Will place on antibiotic. Discussed following up with dental. Linda Disclaimer Linda Disclaimer This electronic medical record was generated, in whole or in part, using a voice recognition dictation system. Departure Departure Impression: Primary Impression: Dental abscess Disposition: 01 HOME, SELF-CARE Condition: STABLE Referrals: UNKNOWN PCP NAME (PCP) Patient Instructions: Carbamide Peroxide dental solution, Dental Abscess Additional Instructions: Thank you for visiting [facility]. We appreciate you trusting us with your care. If any additional problems come up don't hesitate to return to visit us. Please follow up with your primary care provider so they can plan additional care if needed and know about the problem that you had. If symptoms worsen come back to the Emergency Department. Any concerning symptoms that start such as chest pain, shortness of air, weakness or numbness on one side of the body, running high fevers or any other concerning symptoms return to the ER. You have been prescribed an antibiotic today to help fight your infection. Please take all of the antibiotic as directed. If after 48 hours the infection is not improving, please return for more care. If the infection worsens, return to ER for additional care. Please fill your medications at any pharmacy and follow the prescription instructions. Scripts Amoxicillin/Potassium Clav (AUGMENTIN 875-125 TABLET) 1 Each Tablet 1 TAB PO BID for 7 Days, #14 TAB Prov: NABIL FRAUSTO APRN 04/17/19 NABIL FRAUSTO APRN Apr 17, 2019 11:54
[2019-04-17] MEDS ORDERED: KETOROLAC 60 MG/2 ML VIAL. IM ONE (12:00)
[2019-04-17] MEDS ORDERED: LIDOCAINE 2% VISCOUS 15 ML SOLUTION. SWSW ONE (12:00)
== END 2019-04-17 12:12 | disposition home or self-care (01) ==
LOC: ER 11:16
DX: K04.7 Periapical abscess without sinus (principal); F17.200 Nicotine dependence, unspecified, uncomplicated; Z88.1 Allergy status to other antibiotic agents
CPT/HCPCS: 81025; 99283; J1885

== ENCOUNTER 2019-05-21 15:05 | Emergency (ER) | payer SELFPAY ==
[~2019-05-21] VITALS: Ht 160 cm; Wt 45.4 kg
[~2019-05-21 15:05] MED LIST changes: +AMOX1TAB61 PO
[2019-05-21 16:25] LABS: BASO # 0.1 x10^3/uL (0.0-0.2); BASO % 1 % (0-3); EOS # 0.2 x10^3/uL (0.0-0.7); EOS % 2 % (0-3); HEMATOCRIT 42.3 % (36.0-47.0); HEMOGLOBIN 14.5 g/dL (12.0-15.5); LYMPH # 2.3 x10^3/uL (1.0-4.8); LYMPH % 23 % (24-48); MEAN CORPUSCULAR HEMOGLOBIN 31 pg (25-35); MEAN CORPUSCULAR HGB CONC 34 g/dL (31-37); MEAN CORPUSCULAR VOLUME 89 fL (79-100); MONO # 0.7 x10^3/uL (0.0-1.1); MONO % 7 % (0-9); NEUT # 6.6 x10^3/uL (1.8-7.7); NEUT % 67 % (31-73); PLATELET COUNT 272 x10^3/uL (140-400); RED BLOOD COUNT 4.76 x10^6/uL (3.50-5.40); RED CELL DISTRIBUTION WIDTH 13.7 % (11.5-14.5); WHITE BLOOD COUNT 9.7 x10^3/uL (4.0-11.0)
--- NOTE | 2019-05-21 16:29 | PHYS DOC ---
Past Medical History Past Medical History: Depression, Other Additional Past Medical Histor: DENTAL CARIES Past Surgical History: No Surgical History Smoking: Cigarettes Alcohol Use: None Drug Use: None Adult General Chief Complaint Chief Complaint: NAUSEA/VOMITING/DIARRHA HPI HPI Patient is a 33-year-old female who presents to the emergency department for evaluation. She states that yesterday evening, she began expressing some myalgias and hot and cold chills, and today has vomited a few times. She denies any pain at this time, she has not had any abdominal pain, chest pain, shortness of breath, otalgia, headache, sore throat, and denies any urinary symptoms, pelvic pain, vaginal bleeding, or discharge. Her LMP was April 21. There are no alleviating or exacerbating factors to her symptoms. She does admit to feeling a little faint and lightheaded, but has not had any syncope or near syncopal episodes. There are no alleviating or exacerbating factors to her symptoms. Review of Systems Review of Systems Constitutional: Denies fever. Reports chills [] Eyes: Denies change in visual acuity, redness, or eye pain [] HENT: Denies nasal congestion or sore throat [] Respiratory: Denies cough or shortness of breath [] Cardiovascular: The patient denies any shortness of breath, chest pain, palpitations, or orthopnea [] GI: Denies abdominal pain, bloody emesis, bloody stools or diarrhea [] : Denies dysuria or hematuria [] Musculoskeletal: Denies back pain or joint pain [] Integument: Denies rash or skin lesions [] Neurologic: Denies headache, focal weakness or sensory changes [] Endocrine: Denies polyuria or polydipsia [] All other systems were reviewed and found to be within normal limits, except as documented in this note. Current Medications Current Medications Current Medications Medications (Trade) Dose Ordered Sig/Laura Start Time Stop Time Status Last Admin Dose Admin Acetaminophen (Tylenol) 1,000 mg 1X ONCE 05/21/19 16:30 05/21/19 16:31 DC 05/21/19 16:49 1,000 MG Sodium Chloride 1,000 ml @ 1,000 mls/hr 1X ONCE 05/21/19 16:30 05/21/19 17:29 05/21/19 16:49 1,000 MLS/HR Allergies Allergies Allergies Coded Allergies Type Severity Reaction Last Updated Verified cephalexin Adverse Reaction Unknown Nausea and Vomiting 05/29/17 No Physical Exam Physical Exam PHYSICAL EXAM: CONSTITUTIONAL: Well developed, well nourished, nontoxic appearing HEAD: normocephalic, atraumatic EENT: PERRL, EOMI. Conjunctivae normal color, sclerae non-icteric; moist mucous membranes. The oropharynx is nonerythematous. Tympanic membranes are normal bilaterally. NECK: Supple, non-tender; no meningismus. LUNGS: Lungs CTA, breathing even and unlabored. Normal air movement. HEART: Regular rate and rhythm, no murmur CHEST: No deformity; non-tender ABDOMEN: The abdomen is soft, and non-tender, no masses or bruits. EXTREM: Normal ROM; no deformity, no calf tenderness. Normal pulses palpable in all extremities. There is no pedal edema. SKIN: No rash; no diaphoresis NEURO: Alert; normal speech and cognition; CN's grossly intact; strength grossly intact without focal deficit. BACK: No CVA TTP. Current Patient Data Vital Signs Vital Signs Date Time Temp Pulse Resp B/P (MAP) Pulse Ox O2 Delivery O2 Flow Rate FiO2 05/21/19 16:02 98.0 65 14 120/57 (78) 100 Room Air 98.0 Lab Values Laboratory Tests Test 05/21/19 16:03 05/21/19 16:44 05/21/19 16:46 White Blood Count 9.7 x10^3/uL (4.0-11.0) Red Blood Count 4.76 x10^6/uL (3.50-5.40) Hemoglobin 14.5 g/dL (12.0-15.5) Hematocrit 42.3 % (36.0-47.0) Mean Corpuscular Volume 89 fL (79-100) Mean Corpuscular Hemoglobin 31 pg (25-35) Mean Corpuscular Hemoglobin Concent 34 g/dL (31-37) Red Cell Distribution Width 13.7 % (11.5-14.5) Platelet Count 272 x10^3/uL (140-400) Neutrophils (%) (Auto) 67 % (31-73) Lymphocytes (%) (Auto) 23 % (24-48) L Monocytes (%) (Auto) 7 % (0-9) Eosinophils (%) (Auto) 2 % (0-3) Basophils (%) (Auto) 1 % (0-3) Neutrophils # (Auto) 6.6 x10^3/uL (1.8-7.7) Lymphocytes # (Auto) 2.3 x10^3/uL (1.0-4.8) Monocytes # (Auto) 0.7 x10^3/uL (0.0-1.1) Eosinophils # (Auto) 0.2 x10^3/uL (0.0-0.7) Basophils # (Auto) 0.1 x10^3/uL (0.0-0.2) Sodium Level 139 mmol/L (136-145) Potassium Level 3.6 mmol/L (3.5-5.1) Chloride Level 104 mmol/L (98-107) Carbon Dioxide Level 27 mmol/L (21-32) Anion Gap 8 (6-14) Blood Urea Nitrogen 13 mg/dL (7-20) Creatinine 1.0 mg/dL (0.6-1.0) Estimated GFR (Cockcroft-Gault) 63.9 BUN/Creatinine Ratio 13 (6-20) Glucose Level 72 mg/dL (70-99) Lactic Acid Level 1.5 mmol/L (0.4-2.0) Calcium Level 9.5 mg/dL (8.5-10.1) Total Bilirubin 0.8 mg/dL (0.2-1.0) Aspartate Amino Transferase (AST) 16 U/L (15-37) Alanine Aminotransferase (ALT) 18 U/L (14-59) Alkaline Phosphatase 79 U/L (46-116) Total Protein 7.7 g/dL (6.4-8.2) Albumin 4.2 g/dL (3.4-5.0) Albumin/Globulin Ratio 1.2 (1.0-1.7) Lipase 128 U/L (73-393) Urine Collection Type Void Urine Color Yellow Urine Clarity Clear Urine pH 5.0 Urine Specific [place] 1.025 Urine Protein Negative mg/dL (NEG-TRACE) Urine Glucose (UA) Negative mg/dL (NEG) Urine Ketones (Stick) Negative mg/dL (NEG) Urine Blood Small (NEG) Urine Nitrite Negative (NEG) Urine Bilirubin Negative (NEG) Urine Urobilinogen Dipstick 1.0 mg/dL (0.2 mg/dL) Urine Leukocyte Esterase Small (NEG) Urine RBC Rare /HPF (0-2) Urine WBC 1-4 /HPF (0-4) Urine Squamous Epithelial Cells Many /LPF Urine Bacteria Many /HPF (0-FEW) Urine Mucus Marked /LPF POC Urine HCG, Qualitative Hcg negative (Negative) Laboratory Tests 05/21/19 16:03 Laboratory Tests 05/21/19 16:03 EKG EKG [] Radiology/Procedures Radiology/Procedures [] Course & Med Decision Making Course & Med Decision Making Pertinent Lab studies reviewed. (See chart for details) []5:20 PM: Patient remains stable. I discussed test results, the need for close follow-up, symptomatic and expectant management, and return precautions. Dragon Disclaimer Dragon Disclaimer This electronic medical record was generated, in whole or in part, using a voice recognition dictation system. Departure Departure Impression: Primary Impression: Viral syndrome Additional Impression: Nausea and vomiting Disposition: 01 HOME, SELF-CARE Condition: STABLE Referrals: UNKNOWN PCP NAME (PCP) Patient Instructions: Nausea and Vomiting, Viral Syndrome Scripts Ondansetron Hcl (ZOFRAN) 4 Mg Tablet 1 TAB PO Q6HRS PRN for NAUSEA/VOMITING, #20 TAB Prov: TALA NAVARRO MD 05/21/19 Problem Qualifiers TALA NAVARRO MD May 21, 2019 16:29
[2019-05-21 16:34] LABS: CALCIUM 9.5 mg/dL (8.5-10.1); GFR 63.9; POTASSIUM 3.6 mmol/L (3.5-5.1)
[2019-05-21 16:41] LABS: ALBUMIN 4.2 g/dL (3.4-5.0); ALBUMIN/GLOBULIN RATIO 1.2 (1.0-1.7); TOTAL BILIRUBIN 0.8 mg/dL (0.2-1.0); TOTAL PROTEIN 7.7 g/dL (6.4-8.2)
[2019-05-21] MEDS: IV NORMAL SALINE 1000ML BAG 1,000 ML IV ONE (16:49)
[2019-05-21] MEDS: ACETAMINOPHEN 500 MG TABLET PO ONE (16:49)
[2019-05-21 16:54] LABS: BILIRUBIN,URINE NEGATIVE (NEG); CLARITY,URINE CLEAR; COLOR,URINE YELLOW; NITRITE,URINE NEGATIVE (NEG); PROTEIN,URINE NEGATIVE (NEG-TRACE)
[2019-05-21 17:01] LABS: BACTERIA,URINE MANY /HPF (0-FEW); RBC,URINE RARE /HPF (0-2); SQUAMOUS EPITHELIAL CELL,UR MANY /LPF
[2019-05-21] MEDS ORDERED: ONDA4TAB7 PO (17:21)
[2019-05-21 17:25] VITALS: BP 90/55
== END 2019-05-21 17:39 | disposition home or self-care (01) ==
LOC: ER 15:05
DX: B34.9 Viral infection, unspecified (principal); M79.18 Myalgia, other site; R11.2 Nausea with vomiting, unspecified; R68.83 Chills (without fever); R42 Dizziness and giddiness; F32.9 Major depressive disorder, single episode, unspecified; F17.210 Nicotine dependence, cigarettes, uncomplicated; Z88.1 Allergy status to other antibiotic agents
CPT/HCPCS: 36415; 80053; 81001; 81025; 83605; 83690; 85025; 87086; 96360; 99284; J7030; 99285

== ENCOUNTER 2019-06-17 12:55 | Emergency (ER) | payer OTHER ==
[~2019-06-17] VITALS: Ht 162.6 cm; Wt 45.4 kg
[~2019-06-17 12:55] MED LIST changes: +ONDA4TAB7 PO
[2019-06-17 13:36] VITALS: BP 107/54
--- NOTE | 2019-06-17 15:47 | RAD ---
EXAM: PA, oblique and lateral views right wrist DATE: 06/17/2019 2:38 PM INDICATION: Right wrist pain COMPARISON: No Prior FINDINGS/ IMPRESSION: No evidence of acute fracture or dislocation. Joint spaces are preserved without significant degenerative/proliferative change. Electronically signed by: Jonathan Albert MD (06/17/2019 3:45 PM) [facility]
--- NOTE | 2019-06-17 17:06 | PHYS DOC ---
Past Medical History Past Medical History: Depression, Other Additional Past Medical Histor: DENTAL CARIES (MICKY TOLBERT APRN) Past Surgical History: No Surgical History (MICKY TOLBERT APRN) Alcohol Use: None Drug Use: None (MICKY TOLBERT APRN) Adult General Chief Complaint Chief Complaint: HAND PROBLEM [facility] HPI Patient is a 33 year old female who presents with complaints of pain to her ri ght wrist. There is no swelling. She states that she has some intermittent tingling to her fingers. She does have a noticeable cyst. She denies any known injury. (DIDINELYMICKY M BARREL RAISER) Review of Systems Review of Systems Constitutional: Denies fever or chills [] Respiratory: Denies cough or shortness of breath [] Cardiovascular: No additional information not addressed in HPI [] Musculoskeletal: See history of present illness Integument: Denies rash or skin lesions [] Neurologic: Denies headache, focal weakness or sensory changes [] Endocrine: Denies polyuria or polydipsia [] All other systems were reviewed and found to be within normal limits, except as documented in this note. (MICKY TOLBERT APRN) Allergies Allergies Allergies Coded Allergies Type Severity Reaction Last Updated Verified cephalexin Adverse Reaction Unknown Nausea and Vomiting 05/29/17 No (VANDA HUNG MD) Physical Exam Physical Exam Constitutional: Well developed, well nourished, no acute distress, non-toxic appearance. [] Cardiovascular:Heart rate regular rhythm, no murmur [] Lungs & Thorax: Bilateral breath sounds clear to auscultation [] Abdomen: Bowel sounds normal, soft, no tenderness, no masses, no pulsatile masses. [] Skin: Warm, dry, no erythema, no rash. [] Extremities: Mild tenderness, no cyanosis, no clubbing, ROM intact, no edema, ganglion cyst noted. [] Neurologic: Alert and oriented X 3, normal motor function, normal sensory function, no focal deficits noted. [] Psychologic: Affect normal, judgement normal, mood normal. [] (MICKY TOLBERT APRN) Current Patient Data Vital Signs Vital Signs Date Time Temp Pulse Resp B/P (MAP) Pulse Ox O2 Delivery O2 Flow Rate FiO2 06/17/19 13:36 97.8 82 14 107/54 (71) 99 Room Air 97.8 (VANDA HUNG MD) EKG EKG [] (MICKY TOLBERT APRN) Radiology/Procedures Radiology/Procedures []PATIENT: TORI CAPUTOUNT: [id number]#: [id number] : 1985 LOCATION: ER AGE: 33 SEX: F EXAM STATUS: REG ER ORD. PHYSICIAN: MICKY TOLBERT APRN REASON: pain and tingling in right wrist. knot near carpals, nki PROCEDURE: WRIST 3V RIGHT EXAM: PA, oblique and lateral views right wrist DATE: 06/17/2019 2:38 PM INDICATION: Right wrist pain COMPARISON: No Prior FINDINGS/ IMPRESSION: No evidence of acute fracture or dislocation. Joint spaces are preserved without significant degenerative/proliferative change. Electronically signed by: Remi Vo MD (06/17/2019 3:45 PM) [facility] DICTATED and SIGNED BY: REMI VO MD DATE: 06/17/19 1545 (MICKY TOLBERT APRN) Course & Med Decision Making Course & Med Decision Making Pertinent Labs and Imaging studies reviewed. (See chart for details) []No acute bony injury on x-ray. The patient is to follow-up with her primary care provider. She requested a Velcro splint for comfort. She was provided with the splint. (MICKY TOLBERT APRN) Course & Med Decision Making Staff Physician Addendum: I was working in the ER during the course of this patient's visit. I was available for consultation as needed, but I was not directly involved in the care of this patient. (VANDA HUNG MD) Dragon Disclaimer Dragon Disclaimer This electronic medical record was generated, in whole or in part, using a voice recognition dictation system. (MICKY TOLBERT APRN) Departure Departure Impression: Primary Impression: Hand pain, right Disposition: 01 HOME/RESIDENCE PRIOR TO ADM Condition: STABLE Patient Instructions: Pain of Unknown Etiology (Pain without a known Cause) Additional Instructions: Follow up with your primary care provider for possible removal of the cyst on your hand. You may take ibuprofen or Tylenol for pain. If worsening return to the emergency department. MICKY TOLBERT APRN Jun 17, 2019 17:06 VANDA HUNG MD Jun 18, 2019 09:14
== END 2019-06-17 16:06 | disposition home or self-care (01) ==
LOC: ER 12:55
DX: M25.531 Pain in right wrist (principal); F32.9 Major depressive disorder, single episode, unspecified; Z88.1 Allergy status to other antibiotic agents
CPT/HCPCS: 73110; 99284

== ENCOUNTER 2019-08-02 15:49 | Emergency (ER) | payer OTHER ==
[~2019-08-02] VITALS: Ht 162.6 cm; Wt 45.4 kg
[2019-08-02] MEDS ORDERED: MORPHINE SULFATE 10 MG/ML VIAL. IV STA (16:11)
[2019-08-02] MEDS ORDERED: IV NORMAL SALINE 1000ML BAG 1,000 ML IV ONE (16:15)
[2019-08-02] MEDS ORDERED: ONDANSETRON PF 4 MG/2 ML VIAL. IV ONE (16:15)
[2019-08-02] MEDS ORDERED: methylPREDNISolone SOD SUCC PF 125 MG/2 ML VIAL. IV ONE (16:15)
--- NOTE | 2019-08-02 16:19 | PHYS DOC ---
Past Medical History Past Medical History: Depression, Other Additional Past Medical Histor: DENTAL CARIES Past Surgical History: No Surgical History Alcohol Use: None Drug Use: None Adult General Chief Complaint Chief Complaint: DENTAL PROBLEM HPI HPI Patient is a 33 year old female who presents with right-sided neck pain and mouth pain has been ongoing for 3 days. She states when she woke up this morning it was really severe and she was unable to open her mouth and states she cannot swallow. She reports her pain is 9 out of 10 in severity. Review of Systems Review of Systems Constitutional: Reports fever or chills [] Eyes: Denies change in visual acuity, redness, or eye pain [] HENT: Reports R sided dental pain. Respiratory: Denies cough or shortness of breath [] Cardiovascular: No additional information not addressed in HPI [] GI: Denies abdominal pain, nausea, vomiting, bloody stools or diarrhea [] : Denies dysuria or hematuria [] Musculoskeletal: Denies back pain or joint pain [] Integument: Denies rash or skin lesions [] Neurologic: Denies headache, focal weakness or sensory changes [] Endocrine: Denies polyuria or polydipsia [] Complete systems were reviewed and found to be within normal limits, except as documented in this note. Current Medications Current Medications Current Medications Medications (Trade) Dose Ordered Sig/Laura Start Time Stop Time Status Last Admin Dose Admin Info (CONTRAST GIVEN -- Rx MONITORING) 1 each PRN DAILY PRN 08/02/19 16:30 08/04/19 16:29 Iohexol (Omnipaque 300 Mg/ml) 70 ml 1X ONCE 08/02/19 17:00 08/02/19 17:01 DC 08/02/19 17:15 70 ML Methylprednisolone Sodium Succinate (SOLU-Medrol 125MG VIAL) 125 mg 1X ONCE 08/02/19 16:15 08/02/19 16:17 DC 08/02/19 16:46 125 MG Morphine Sulfate (Morphine Sulfate) 5 mg 1X STAT 08/02/19 16:11 08/02/19 16:17 DC 08/02/19 16:50 5 MG Ondansetron HCl (Zofran) 4 mg 1X ONCE 08/02/19 16:15 08/02/19 16:17 DC 08/02/19 16:47 4 MG Sodium Chloride 1,000 ml @ 1,000 mls/hr 1X ONCE 08/02/19 16:15 08/02/19 17:14 DC 08/02/19 16:51 1,000 MLS/HR Allergies Allergies Allergies Coded Allergies Type Severity Reaction Last Updated Verified cephalexin Adverse Reaction Mild Nausea and Vomiting 08/02/19 No Physical Exam Physical Exam Constitutional: Well developed, well nourished, no acute distress, non-toxic appearance. [] HENT: Normocephalic, atraumatic, bilateral external ears normal, R sided lower dental abscess, nose normal, halitosis, unable to fully open mouth. Eyes: PERRLA, EOMI, conjunctiva normal, no discharge. [] Neck: Normal range of motion, R sided neck tenderness, supple, no stridor. [] Skin: Warm, dry, no erythema, no rash. [] Back: No tenderness, no CVA tenderness. [] Extremities: No tenderness, no cyanosis, no clubbing, ROM intact, no edema. [] Neurologic: Alert and oriented X 3, normal motor function, normal sensory function, no focal deficits noted. [] Psychologic: Affect normal, judgement normal, mood normal. [] Current Patient Data Vital Signs Vital Signs Date Time Temp Pulse Resp B/P (MAP) Pulse Ox O2 Delivery O2 Flow Rate FiO2 08/02/19 16:50 18 100 Room Air 08/02/19 16:01 98.5 71 115/57 (76) 98.5 Lab Values Laboratory Tests Test 08/02/19 16:28 08/02/19 16:32 White Blood Count 11.8 x10^3/uL (4.0-11.0) H Red Blood Count 5.05 x10^6/uL (3.50-5.40) Hemoglobin 15.2 g/dL (12.0-15.5) Hematocrit 45.0 % (36.0-47.0) Mean Corpuscular Volume 89 fL (79-100) Mean Corpuscular Hemoglobin 30 pg (25-35) Mean Corpuscular Hemoglobin Concent 34 g/dL (31-37) Red Cell Distribution Width 13.8 % (11.5-14.5) Platelet Count 251 x10^3/uL (140-400) Neutrophils (%) (Auto) 67 % (31-73) Lymphocytes (%) (Auto) 22 % (24-48) L Monocytes (%) (Auto) 8 % (0-9) Eosinophils (%) (Auto) 3 % (0-3) Basophils (%) (Auto) 1 % (0-3) Neutrophils # (Auto) 7.9 x10^3/uL (1.8-7.7) H Lymphocytes # (Auto) 2.5 x10^3/uL (1.0-4.8) Monocytes # (Auto) 0.9 x10^3/uL (0.0-1.1) Eosinophils # (Auto) 0.3 x10^3/uL (0.0-0.7) Basophils # (Auto) 0.1 x10^3/uL (0.0-0.2) Sodium Level 140 mmol/L (136-145) Potassium Level 3.6 mmol/L (3.5-5.1) Chloride Level 99 mmol/L (98-107) Carbon Dioxide Level 28 mmol/L (21-32) Anion Gap 13 (6-14) Blood Urea Nitrogen 8 mg/dL (7-20) Creatinine 0.8 mg/dL (0.6-1.0) Estimated GFR (Cockcroft-Gault) 82.6 BUN/Creatinine Ratio 10 (6-20) Glucose Level 88 mg/dL (70-99) Lactic Acid Level 1.3 mmol/L (0.4-2.0) Calcium Level 9.4 mg/dL (8.5-10.1) Magnesium Level 1.7 mg/dL (1.8-2.4) L Total Bilirubin 0.4 mg/dL (0.2-1.0) Aspartate Amino Transferase (AST) 9 U/L (15-37) L Alanine Aminotransferase (ALT) 10 U/L (14-59) L Alkaline Phosphatase 85 U/L (46-116) C-Reactive Protein, Quantitative 7.1 mg/L (0-3.3) H Total Protein 8.3 g/dL (6.4-8.2) H Albumin 4.5 g/dL (3.4-5.0) Albumin/Globulin Ratio 1.2 (1.0-1.7) POC Urine HCG, Qualitative Hcg negative (Negative) Laboratory Tests 08/02/19 16:28 Laboratory Tests 08/02/19 16:28 EKG EKG [] Radiology/Procedures Radiology/Procedures [][facility] [address] [place] [address] IMAGING REPORT Signed PATIENT: TORI CAPUTO ACCOUNT: [id number] : 1985 LOCATION: ER AGE: 33 SEX: F EXAM STATUS: REG ER ORD. PHYSICIAN: NABIL FRAUSTO APRN REASON: unable to open mouth all of the way, R neck pain, concern for abscess. PROCEDURE: CT SOFT TISSUE NECK W/CONTRAST CT SOFT TISSUE NECK W/CONTRAST History: Right neck pain. Concern for abscess. Unable to open mouth completely. Technique: CT imaging was performed of the neck soft tissues with contrast. Coronal and sagittal reconstructions were performed. Exposure: One or more of the following individualized dose reduction techniques were utilized for this examination: 1. Automated exposure control 2. Adjustment of the mA and/or kV according to patient size 3. Use of iterative reconstruction technique. Comparison: None Findings: Normal appearance of the bilateral submandibular and parotid glands. Unremarkable thyroid gland. No pathologic lymphadenopathy. Imaged lung apices are unremarkable. Minimal bilateral maxillary sinus mucosal thickening. Left anterior sphenoid sinus mucous retention cyst or polyp. Mastoid air cells are clear. Imaged orbits and intracranial contents are unremarkable. Scattered carious dentition. Right maxillary first premolar periapical lucency. No adjacent soft tissue swelling or abscess. Impression: 1. No acute pathology within the neck soft tissues. 2. Multifocal carious dentition with right maxillary first premolar periodontal disease. Electronically signed by: Aldo Rock DO (08/02/2019 5:37 PM) [facility] DICTATED and SIGNED BY: ALDO ROCK DO DATE: 08/02/19 348 Course & Med Decision Making Course & Med Decision Making Pertinent Labs and Imaging studies reviewed. (See chart for details) It appears she has a dental abscess, however she is having difficulty swallowing and R neck pain. Will get CT neck to evaluate and labs. Lab are unremarkable. CT shows: Impression: 1. No acute pathology within the neck soft tissues. 2. Multifocal carious dentition with right maxillary first premolar periodontal disease. Electronically signed by: Aldo Rock DO (08/02/2019 5:37 PM) [facility] Will place on Augmentin and then give dental balls for pain control. Will d/c home. Will instruct to follow up with dentist. Linda Disclaimer Linda Disclaimer This electronic medical record was generated, in whole or in part, using a voice recognition dictation system. Departure Departure Impression: Primary Impression: Pain, dental Disposition: HOME, SELF-CARE Condition: STABLE Referrals: UNKNOWN PCP NAME (PCP) Patient Instructions: Carbamide Peroxide dental solution, Dental Abscess Additional Instructions: Thank you for visiting [facility]. We appreciate you trusting us with your care. If any additional problems come up don't hesitate to return to visit us. Please follow up with your primary care provider so they can plan additional care if needed and know about the problem that you had. If symptoms worsen come back to the Emergency Department. Any concerning symptoms that start such as chest pain, shortness of air, weakness or numbness on one side of the body, running high fevers or any other concerning symptoms return to the ER. Please follow up with dentist as soon as possible. You have been prescribed an antibiotic today to help fight your infection. Please take all of the antibiotic as directed. If after 48 hours the infection is not improving, please return for more care. If the infection worsens, return to ER for additional care. Scripts Amoxicillin/Potassium Clav (AUGMENTIN 875-125 TABLET) 1 Each Tablet 1 TAB PO BID for 10 Days, #20 TAB 0 Refills Prov: NABIL FRAUSTO APRN 08/02/19 NABIL FRAUSTO APRN Aug 02, 2019 16:19
[2019-08-02] MEDS ORDERED: CONTRAST GIVEN. MC PRN (16:30)
[2019-08-02 16:41] LABS: BASO # 0.1 x10^3/uL (0.0-0.2); BASO % 1 % (0-3); EOS # 0.3 x10^3/uL (0.0-0.7); EOS % 3 % (0-3); HEMOGLOBIN 15.2 g/dL (12.0-15.5); LYMPH # 2.5 x10^3/uL (1.0-4.8); LYMPH % 22 % (24-48); MEAN CORPUSCULAR HEMOGLOBIN 30 pg (25-35); MEAN CORPUSCULAR HGB CONC 34 g/dL (31-37); MEAN CORPUSCULAR VOLUME 89 fL (79-100); MONO # 0.9 x10^3/uL (0.0-1.1); MONO % 8 % (0-9); NEUT # 7.9 x10^3/uL (1.8-7.7); NEUT % 67 % (31-73); PLATELET COUNT 251 x10^3/uL (140-400); RED BLOOD COUNT 5.05 x10^6/uL (3.50-5.40); RED CELL DISTRIBUTION WIDTH 13.8 % (11.5-14.5); WHITE BLOOD COUNT 11.8 x10^3/uL (4.0-11.0)
[2019-08-02 16:53] LABS: CALCIUM 9.4 mg/dL (8.5-10.1); CREATININE 0.8 mg/dL (0.6-1.0); GFR 82.6; POTASSIUM 3.6 mmol/L (3.5-5.1)
[2019-08-02 17:00] LABS: ALBUMIN 4.5 g/dL (3.4-5.0); ALBUMIN/GLOBULIN RATIO 1.2 (1.0-1.7); C-REACTIVE PROTEIN 7.1 mg/L (0-3.3); MAGNESIUM 1.7 mg/dL (1.8-2.4); TOTAL BILIRUBIN 0.4 mg/dL (0.2-1.0); TOTAL PROTEIN 8.3 g/dL (6.4-8.2)
[2019-08-02] MEDS ORDERED: IOHEXOL 300 MG/ML 100ML VIAL. IV ONE (17:00)
--- NOTE | 2019-08-02 17:40 | RAD ---
CT SOFT TISSUE NECK W/CONTRAST History: Right neck pain. Concern for abscess. Unable to open mouth completely. Technique: CT imaging was performed of the neck soft tissues with contrast. Coronal and sagittal reconstructions were performed. Exposure: One or more of the following individualized dose reduction techniques were utilized for this examination: 1. Automated exposure control 2. Adjustment of the mA and/or kV according to patient size 3. Use of iterative reconstruction technique. Comparison: None Findings: Normal appearance of the bilateral submandibular and parotid glands. Unremarkable thyroid gland. No pathologic lymphadenopathy. Imaged lung apices are unremarkable. Minimal bilateral maxillary sinus mucosal thickening. Left anterior sphenoid sinus mucous retention cyst or polyp. Mastoid air cells are clear. Imaged orbits and intracranial contents are unremarkable. Scattered carious dentition. Right maxillary first premolar periapical lucency. No adjacent soft tissue swelling or abscess. Impression: 1. No acute pathology within the neck soft tissues. 2. Multifocal carious dentition with right maxillary first premolar periodontal disease. Electronically signed by: Aldo Mcnamara DO (08/02/2019 5:37 PM) [facility]
[2019-08-02] MEDS ORDERED: AMOX1TAB61 PO (17:49)
[2019-08-02] MEDS ORDERED: LIDOCAINE 2% VISCOUS 15 ML SOLUTION. SWSW STA (17:50)
[2019-08-02] MEDS ORDERED: MAG HYDROX/ALUMINUM HYD/SIMETH 30 ML ORAL.SUSP PO STA (17:50)
[2019-08-02 17:54] VITALS: BP 124/69
[2019-08-03] MEDS ORDERED: ONDA4TAB11 PO (18:10)
== END 2019-08-02 18:10 | disposition home or self-care (01) ==
LOC: ER 15:49
DX: K08.89 Other specified disorders of teeth and supporting structures (principal); M54.2 Cervicalgia; K13.79 Other lesions of oral mucosa; R13.10 Dysphagia, unspecified; Z88.1 Allergy status to other antibiotic agents
CPT/HCPCS: 36415; 70491; 80053; 81025; 83605; 83735; 85025; 86140; 96374; 96375; 99285; J2270; J2405; J2930; J7030; Q9967

== ENCOUNTER 2019-08-03 15:32 | Emergency (ER) | payer OTHER ==
[~2019-08-03] VITALS: Ht 162.6 cm; Wt 45.4 kg
[2019-08-03 15:50] VITALS: BP 117/58
[2019-08-03] MEDS ORDERED: ONDANSETRON ODT 4 MG TAB.RAPDIS. PO ONE ×2 (16:45→17:30)
--- NOTE | 2019-08-03 17:38 | PHYS DOC ---
Past Medical History Past Medical History: Depression, Kidney Stone, Other Additional Past Medical Histor: DENTAL CARIES Past Surgical History: No Surgical History Alcohol Use: None Drug Use: None Adult General Chief Complaint Chief Complaint: NAUSEA/VOMITING/DIARRHA HPI HPI Patient is a 33 year old female who presents to the emergency department with complaints of 4 episodes of nausea and vomiting after being diagnosed with a dental abscess and discharged home from this facility last night. Patient states that she was prescribed Augmentin for her dental abscess has been taking as directed. She states that at about 2300 last night she felt the abscess pop open and reports that it has been draining a foul tasting liquid since then. She denies any fever, cough, sore throat, diarrhea, abdominal pain, rash, shortness of breath, or ear pain. Currently, she rates her pain 8 out of 10 on the pain scale, there are no alleviating factors. The pain increases if she tries to chew or move her jaw. All other ROS is neg unless otherwise noted in HPI. Review of Systems Review of Systems See Above Current Medications Current Medications Current Medications Medications (Trade) Dose Ordered Sig/Laura Start Time Stop Time Status Last Admin Dose Admin Ondansetron HCl (Zofran Odt) 4 mg 1X ONCE 08/03/19 17:30 08/03/19 17:31 DC 08/03/19 17:31 4 MG Allergies Allergies Allergies Coded Allergies Type Severity Reaction Last Updated Verified cephalexin Adverse Reaction Mild Nausea and Vomiting 08/02/19 No Physical Exam Physical Exam See Above Constitutional: Well developed, well nourished, no acute distress, non-toxic ap pearance. [] HENT: Normocephalic, atraumatic, bilateral external ears normal, oropharynx moist, nose normal; malodorous breath noted with draining dental abscess noted in the right lower quadrant of mouth, diffuse dental decay and gingival irritation present. [] Eyes: PERRLA, EOMI, conjunctiva normal, no discharge. [] Neck: Normal range of motion, no tenderness, supple, no stridor. [] Cardiovascular:Heart rate regular rhythm, no murmur [] Lungs & Thorax: Bilateral breath sounds clear to auscultation, Respirations even and unlabored, no retractions, no respiratory distress [] Abdomen: Bowel sounds normal, soft, no tenderness, no masses, no pulsatile masses. [] Skin: Warm, dry, no erythema, no rash. [] Back: No CVA tenderness. [] Extremities: No cyanosis, ROM intact Neurologic: Alert and oriented X 3, no focal deficits noted. [] Psychologic: Affect normal, judgement normal, mood normal. [ Current Patient Data Vital Signs Vital Signs Date Time Temp Pulse Resp B/P (MAP) Pulse Ox O2 Delivery O2 Flow Rate FiO2 08/03/19 15:50 98.1 83 16 117/58 (77) 98 Room Air 98.1 EKG EKG [] Radiology/Procedures Radiology/Procedures [] Course & Med Decision Making Course & Med Decision Making Pertinent Labs and Imaging studies reviewed. (See chart for details) The patient was given a total of 8 mg of sublingual Zofran. She was able to tolerate by mouth fluids in the emergency department after the second dose of Zofran. Patient was instructed to make warm salt water solution and rinsed her mouth out with that every 1-2 hours while awake until drainage decreases. Continue taking the antibiotic as previously prescribed. Follow-up with your dentist as previously instructed. Encouraged patient to take Tylenol or ibuprofen as needed for pain. Return to the ER if symptoms worsen or she develops fever. Patient verbalized an understanding of home care, medications, follow-up, and return to ED instructions and was in agreement with the plan of care. [] Dragon Disclaimer Dragon Disclaimer This electronic medical record was generated, in whole or in part, using a voice recognition dictation system. Departure Departure Impression: Primary Impression: Dental abscess Additional Impression: Nausea Disposition: 01 HOME, SELF-CARE Condition: STABLE Referrals: UNKNOWN PCP NAME (PCP) Patient Instructions: Nausea, Adult, [id number] Additional Instructions: Fill the prescription and use as directed for nausea. I recommend that you use warm salt water and swish with it until you're spitting out clear liquid every 1-2 hours while awake for the next few days. Continue taking the antibiotic as prescribed. Follow-up with your dentist as previously instructed. Return to the ER symptoms worsen or you develop a fever. Scripts Ondansetron Hcl (ONDANSETRON HCL) 4 Mg Tablet 1 TAB PO PRN Q6HRS PRN for NAUSEA/VOMITING for 3 Days, #10 TAB 0 Refills Prov: PRAVIN EVANS APRN 08/03/19 Problem Qualifiers PRAVIN EVANS APRN Aug 03, 2019 17:38
[2019-08-03] MEDS ORDERED: ONDA4TAB11 PO (18:10)
== END 2019-08-03 18:46 | disposition home or self-care (01) ==
LOC: ER 15:32
DX: K04.7 Periapical abscess without sinus (principal); R11.2 Nausea with vomiting, unspecified; Z88.1 Allergy status to other antibiotic agents
CPT/HCPCS: 99283; Q0162

== ENCOUNTER 2020-02-23 13:46 | Emergency (ER) | payer OTHER ==
[~2020-02-23] VITALS: Ht 162.6 cm; Wt 45.0 kg
[~2020-02-23 13:46] MED LIST changes: +ONDA-84 PO
[2020-02-23] MEDS ORDERED: HYDR-2761 PO (15:11)
--- NOTE | 2020-02-23 15:12 | PHYS DOC ---
Past Medical History Past Medical History: Anxiety, Depression, Kidney Stone, Other Additional Past Medical Histor: DENTAL CARIES Past Surgical History: Other Additional Past Surgical Histo: dental Smoking Status: Current Every Day Smoker Alcohol Use: None Drug Use: None General Adult EDM: Chief Complaint: DENTAL PROBLEM HPI: HPI: Patient is a 34 year old female who presents to the emergency department with complaints of bilateral dental pain following recent dental extractions. Patient states she had to dental extractions on February 12, 2028 and tomorrow on February 182019. The first dental extractions are located on the left side, and the second session removed teeth on the right side. She denies any fever, nausea, vomiting, sore throat, ear pain, headache, or rash. Patient states earlier today the right side of her jaw was swollen. Patient states she has been taking clindamycin and Tylenol. She continues to report pain at the extraction sites that she rates a 10 out of 10 on the pain scale. Patient states she is also been applying ice packs without any benefit. Review of Systems: Review of Systems: Complete review of systems is negative unless otherwise documented in HPI Heart Score: Risk Factors: Risk Factors: DM, Current or recent (<one month) smoker, HTN, HLP, family history of CAD, obesity. Risk Scores: Score 0 - 3: 2.5% MACE over next 6 weeks - Discharge Home Score 4 - 6: 20.3% MACE over next 6 weeks - Admit for Clinical Observation Score 7 - 10: 72.7% MACE over next 6 weeks - Early Invasive Strategies Allergies: Allergies: Allergies Coded Allergies Type Severity Reaction Last Updated Verified cephalexin Adverse Reaction Mild Nausea and Vomiting 08/02/19 No Physical Exam: PE: Constitutional: Well developed, well nourished, no acute distress, non-toxic appearance. [] HENT: Normocephalic, atraumatic, bilateral external ears normal, nose normal. [] Eyes: PERRLA, EOMI, conjunctiva normal, no discharge. [] Neck: Normal range of motion, no stridor. [] Cardiovascular:Heart rate regular rhythm Lungs & Thorax: Respirations even and unlabored, no retractions, no respiratory distress Abdomen: soft, no tenderness Skin: Warm, dry, no erythema, no rash. [] Extremities: No cyanosis, ROM intact, no edema. [] Neurologic: Alert and oriented X 3, no focal deficits noted. [] Psychologic: Affect normal, judgement normal, mood normal. [] Current Patient Data: Vital Signs: Vital Signs Date Time Temp Pulse Resp B/P (MAP) Pulse Ox O2 Delivery O2 Flow Rate FiO2 02/23/20 14:00 98.7 83 20 119/68 (85) 98 Room Air 98.7 EKG: EKG: [] Radiology/Procedures: Radiology/Procedures: [] Course & Med Decision Making: Course & Med Decision Making Pertinent Labs and Imaging studies reviewed. (See chart for details) [] Dragon Disclaimer: Dragon Disclaimer: This electronic medical record was generated, in whole or in part, using a voice recognition dictation system. Departure Departure Impression: Primary Impression: Pain, dental Additional Impression: Dry tooth socket Disposition: HOME, SELF-CARE Condition: STABLE Referrals: NO PCP (PCP) Patient Instructions: Dental Dry Socket, [id number] Additional Instructions: Fill the prescription and use as directed. Call your dentist and advise of dry sockets in the emergency department. Continue taking the clindamycin as prescribed. Return to the ER if symptoms worsen or you develop a fever. Scripts Hydrocodone Bit/Acetaminophen (HYDROCODONE-APAP 5-325 ) 1 Tab Tablet 1 TAB PO PRN Q6HRS PRN for PAIN for 3 Days, #12 TAB 0 Refills Prov: PRAVIN EVANS APRN 02/23/20 PRAVIN EVANS APRN Feb 23, 2020 15:12
[2020-02-23 15:24] VITALS: BP 116/75
== END 2020-02-23 15:24 | disposition home or self-care (01) ==
LOC: ER 13:46
DX: K08.89 Other specified disorders of teeth and supporting structures (principal); M27.3 Alveolitis of jaws; F41.9 Anxiety disorder, unspecified; F32.9 Major depressive disorder, single episode, unspecified; F17.200 Nicotine dependence, unspecified, uncomplicated; Z98.890 Other specified postprocedural states; Z87.442 Personal history of urinary calculi
CPT/HCPCS: 99283

== ENCOUNTER 2020-03-30 13:01 | Emergency (ER) | payer OTHER ==
[~2020-03-30] VITALS: Ht 162.6 cm; Wt 45.0 kg
[~2020-03-30 13:01] MED LIST changes: +HYDR-2761 PO
[2020-03-30 13:16] VITALS: BP 117/56
[2020-03-30] MEDS ORDERED: ALPRAZolam 0.5 MG TABLET PO ONE (13:45)
[2020-03-30] MEDS ORDERED: HYDR25TA PO (14:13)
--- NOTE | 2020-03-30 14:13 | PHYS DOC ---
Past Medical History Past Medical History: Anxiety, Depression, Kidney Stone, Other Additional Past Medical Histor: DENTAL CARIES Past Surgical History: Other Additional Past Surgical Histo: dental Smoking Status: Current Every Day Smoker Alcohol Use: None Drug Use: None General Adult EDM: Chief Complaint: ANXIETY/PANIC ATTACK HPI: HPI: Patient is a 34 year old female who presents to the ED today complaining of an anxiety attack that began today. Patient reports history of anxiety. He states she has been trying to manage her anxiety the natural way using meditation and relaxation with no success. She states she is being stressed out at home with multiple stressors including custody issues. Denies any suicidal or homicidal ideations. She states she used to be on Xanax with some relief for her symptoms but has not taken it for a while. Review of Systems: Review of Systems: Constitutional: Denies fever or chills. [] Eyes: Denies change in visual acuity. [] HENT: Denies nasal congestion or sore throat. [] Respiratory: Denies cough or shortness of breath. [] Cardiovascular: Denies chest pain or edema. [] GI: Denies abdominal pain, nausea, vomiting, bloody stools or diarrhea. [] : Denies dysuria. [] Musculoskeletal: Denies back pain or joint pain. [] Integument: Denies rash. [] Neurologic: Denies headache, focal weakness or sensory changes. [] Endocrine: Denies polyuria or polydipsia. [] Lymphatic: Denies swollen glands. [] Psychiatric: Reports anxiety Heart Score: Risk Factors: Risk Factors: DM, Current or recent (<one month) smoker, HTN, HLP, family history of CAD, obesity. Risk Scores: Score 0 - 3: 2.5% MACE over next 6 weeks - Discharge Home Score 4 - 6: 20.3% MACE over next 6 weeks - Admit for Clinical Observation Score 7 - 10: 72.7% MACE over next 6 weeks - Early Invasive Strategies Current Medications: Current Medications Medications (Trade) Dose Ordered Sig/Laura Start Time Stop Time Status Last Admin Dose Admin Alprazolam (Xanax) 0.5 mg 1X ONCE 03/30/20 13:45 03/30/20 13:46 DC 03/30/20 13:47 0.5 MG Allergies: Allergies: Allergies Coded Allergies Type Severity Reaction Last Updated Verified cephalexin Adverse Reaction Mild Nausea and Vomiting 08/02/19 No Physical Exam: PE: Constitutional: Well developed, well nourished, no acute distress, non-toxic appearance. [] HENT: Normocephalic, atraumatic, bilateral external ears normal, oropharynx moist, no oral exudates, nose normal. [] Eyes: PERRLA, EOMI, conjunctiva normal, no discharge. [] Neck: Normal range of motion, no tenderness, supple, no stridor. [] Cardiovascular:Heart rate regular rhythm, no murmur [] Lungs & Thorax: Bilateral breath sounds clear to auscultation [] Abdomen: Bowel sounds normal, soft, no tenderness, no masses, no pulsatile masses. [] Skin: Warm, dry, no erythema, no rash. [] Back: No tenderness, no CVA tenderness. [] Extremities: No tenderness, no cyanosis, no clubbing, ROM intact, no edema. [] Neurologic: Alert and oriented X 3, normal motor function, normal sensory function, no focal deficits noted. [] Psychologic: flat affect Current Patient Data: Labs: Laboratory Tests Test 03/30/20 13:22 POC Urine HCG, Qualitative Hcg negative (Negative) Vital Signs: Vital Signs Date Time Temp Pulse Resp B/P (MAP) Pulse Ox O2 Delivery O2 Flow Rate FiO2 03/30/20 13:16 98.2 78 18 117/56 (76) 100 Room Air 98.2 EKG: EKG: [] Radiology/Procedures: Radiology/Procedures: [] Course & Med Decision Making: Course & Med Decision Making Pertinent Labs and Imaging studies reviewed. (See chart for details) This is a 34-year-old female patient presenting to the ED today complaining of anxiety attack. Patient denies any suicidal or homicidal ideations. Has history of anxiety. Provided resources for follow-up at [facility]. Provided return precautions and discharged in stable condition. Linda Disclaimer: Linda Disclaimer: This electronic medical record was generated, in whole or in part, using a voice recognition dictation system. Departure Departure Impression: Primary Impression: Anxiety Disposition: HOME, SELF-CARE Condition: STABLE Referrals: NO PCP (PCP) Follow-up with [facility] Patient Instructions: Anxiety and Panic Attacks Additional Instructions: You were evaluated in the emergency room for anxiety. Please consider following up with [facility]. Take the prescribed medication as needed for your symptoms. Scripts Hydroxyzine Hcl (HYDROXYZINE HCL) 25 Mg Tablet 1 TAB PO TID, #30 TAB Prov: MISSY WILHELM APRN 03/30/20 Justicifation of Admission Dx: Justifications for Admission: Justification of Admission Dx: N/A MISSY WILHELM APRN Mar 30, 2020 14:13
== END 2020-03-30 14:49 | disposition home or self-care (01) ==
LOC: ER 13:01
DX: F41.9 Anxiety disorder, unspecified (principal); F32.9 Major depressive disorder, single episode, unspecified; F17.200 Nicotine dependence, unspecified, uncomplicated; Z88.1 Allergy status to other antibiotic agents
CPT/HCPCS: 81025; 99283

== ENCOUNTER 2021-08-26 11:51 | Emergency (ER) | payer OTHER ==
[~2021-08-26] VITALS: Ht 162.6 cm; Wt 45.5 kg
[~2021-08-26 11:51] MED LIST changes: +CYCL10TA19 PO; -CYCL10TA2 PO; +HYDR25TA PO
[2021-08-26] MEDS ORDERED: HYDROcodone/APAP 5/325MG 1 TAB TABLET PO ONE (18:30)
[2021-08-26] MEDS ORDERED: HYDR-2761 PO (18:32)
[2021-08-26] MEDS ORDERED: CLIN-94 PO (18:32)
--- NOTE | 2021-08-26 18:33 | PHYS DOC ---
Past Medical History Past Medical History: Anxiety, Depression, Kidney Stone, Other Additional Past Medical Histor: ptsd (SOHAN AGUILAR APRN) Past Surgical History: Other Additional Past Surgical Histo: dental (SOHAN AGUILAR APRN) Smoking Status: Current Every Day Smoker Alcohol Use: None Drug Use: None (SOHAN AGUILAR APRN) General Adult EDM: Chief Complaint: INSECT BITE HPI: HPI: Patient is a 35 year old female who presents with insect bite to left calf. Calf is red, swollen, warm to the touch. Patient states that she noticed insect bite 2 days ago but had an increase in pain today. Denies taking anything at home for pain. Pain is worse with ambulation. Sensations intact. Denies medical history. (SOHNA AGUILAR APRN) Review of Systems: Review of Systems: ROS At least 10 ROS systems have been reviewed and are negative except as documented in the HPI. General: Negative except as outlined in HPI above. Skin: Negative except as outlined in HPI above. HEENT: Negative except as outlined in HPI above. Neck: Negative except as outlined in HPI above. Respiratory: Negative except as outlined in HPI above.. Cardiovascular: Negative except as outlined in HPI above. Abdomen: Negative except as outlined in HPI above. : Negative except as outlined in HPI above. Back/MSK: Negative except as outlined in HPI above. Neuro: Negative except as outlined in HPI above. Psych: Negative except as outlined in HPI above. (SOHAN AGUILAR APRN) Heart Score: C/O Chest Pain: No Risk Factors: Risk Factors: DM, Current or recent (<one month) smoker, HTN, HLP, family history of CAD, obesity. Risk Scores: Score 0 - 3: 2.5% MACE over next 6 weeks - Discharge Home Score 4 - 6: 20.3% MACE over next 6 weeks - Admit for Clinical Observation Score 7 - 10: 72.7% MACE over next 6 weeks - Early Invasive Strategies (SOHAN AGUILAR APRN) Allergies: Allergies: Allergies Coded Allergies Type Severity Reaction Last Updated Verified cephalexin Adverse Reaction Mild Nausea and Vomiting 08/02/19 No (SOHAN AGUILAR APRN) Physical Exam: PE: Constitutional: Well developed, well nourished, no acute distress, non-toxic appearance. [] HENT: Normocephalic, atraumatic, bilateral external ears normal, oropharynx moist, no oral exudates, nose normal. [] Eyes: PERRLA, EOMI, conjunctiva normal, no discharge. [] Neck: Normal range of motion, no tenderness, supple, no stridor. [] Cardiovascular:Heart rate regular rhythm, no murmur [] Lungs & Thorax: Bilateral breath sounds clear to auscultation [] Abdomen: Bowel sounds normal, soft, no tenderness, no masses, no pulsatile masses. [] Skin: Warm, dry, no erythema, no rash. [] Back: No tenderness, no CVA tenderness. [] Extremities: Left lower calf tenderness, ROM intact, nonpitting edema, red, warm to the touch Neurologic: Alert and oriented X 3, normal motor function, normal sensory function, no focal deficits noted. [] Psychologic: Affect normal, judgement normal, mood normal. [] (SOHAN AGUILAR APRN) Current Patient Data: Vital Signs: Vital Signs Date Time Temp Pulse Resp B/P (MAP) Pulse Ox O2 Delivery O2 Flow Rate FiO2 08/26/21 17:56 98.0 84 18 109/62 (78) 100 Room Air 98.0 (SOHAN AGUILAR APRN) EKG: EKG: [] (SOHAN AGUILAR APRN) Radiology/Procedures: Radiology/Procedures: [] (SOHAN AGUILAR APRN) Course & Med Decision Making: Course & Med Decision Making Pertinent Labs and Imaging studies reviewed. (See chart for details) [] 35-year-old female who presents with insect bite to left calf. Afebrile. Hemodynamically stable. Pain treated in the ER. Patient sent home with a prescription for an antibiotic and pain medication. Patient to take ibuprofen for breakthrough pain at home. Discussed return precautions in length. Patient verbalizes understanding of discharge instructions. (SOHAN AGUILAR APRN) Course & Med Decision Making Patients Care and treatment plan provided by ER Nurse Practitioner. I was available for consult. Patient's chart reviewed. (BHARATI HENDRICKS DO) Linda Disclaimer: Linda Disclaimer: This electronic medical record was generated, in whole or in part, using a voice recognition dictation system. (SOHAN AGUILAR APRN) Departure Departure Impression: Primary Impression: Insect bite Qualified Codes: S80.862A - Insect bite (nonvenomous), left lower leg, initial encounter; W57.XXXA - Bitten or stung by nonvenomous insect and other nonvenomous arthropods, initial encounter Disposition: HOME / SELF CARE / HOMELESS Condition: STABLE Referrals: NO PCP (PCP) Patient Instructions: Insect Bite, [id number] Additional Instructions: You are seen in the emergency room for insect bite to left lower calf. You were given pain medication while in the ER. I am sending you home with antibiotic. Make sure you take it in full and as directed. Follow-up with your PCP if symptoms do not improve. You can use ibuprofen for breakthrough pain. Return to emergency room with worsening symptoms or concerns such as increasing pain, swelling, size, fevers. EMERGENCY DEPARTMENT GENERAL DISCHARGE INSTRUCTIONS Thank you for coming to [facility] Emergency Department (ED) today and trusting us with you care. We trust that you had a positive experience in our Emergency Department. If you wish to speak to the department management, you may call the Director at [phone]. YOUR FOLLOW UP INSTRUCTIONS ARE FOLLOWS: 1. Do you have a private Doctor? If you do not have a private doctor, please ask for a resource list of physicians or clinics that may be able to assist you with follow up care. 2. The Emergency Physicain has interpreted your x-rays. The X-Ray specialist will also review them. If there is a change in the findings, you will be notified in 48 hours when at all possible. 3. A lab test or culture has been done, your results will be reviewed and you will be notified if you need a change in treatment. ADDITIONAL INSTRUCTIONS AND INFORMATION: 1. Your care today has been supervised by a physician who is specially trained in emergency care. Many problems require more than one evaluation for a complete diagnosis and treatment. We recommend that you schedule your follow up appointment as recommended to ensure complete treatment of you illness or injury. If you are unable to obtain follow up care and continue to have a problem, or if your condition worsens, we recommend that you return to the ED. 2. We are not able to safely determine your condition over the phone nor are we able to give sound medical advice over the phone. For these safety reasons, if you call for medical advice we will ask you to come to the ED for further evaluation. 3. If you have any questions regarding these discharge instructions please call the ED at [phone]. SAFETY INFORMATION: In the interest of safety, wellness, and injury prevention; we encourage you to wear your sealbelt, if you smoke; quite smoking, and we encourage family to use a protective helmet for bicycling and other sporting events that present an increased risk for head injury. IF YOUR SYMPTOMS WORSEN OR NEW SYMPTOMS DEVELOP, OR YOU HAVE CONCERNS ABOUT YOUR CONDITION; OR IF YOUR CONDITION WORSENS WHILE YOU ARE WAITING FOR YOUR FOLLOW UP APPOINTMENT; EITHER CONTACT YOUR PRIMARY CARE DOCTOR, THE PHYSICIAN WHOSE NAME AND NUMBER YOU WERE GIVEN, OR RETURN TO THE ED IMMEDIATELY. Scripts Clindamycin Hcl (CLINDAMYCIN HCL) 300 Mg Capsule 1 CAP PO TID for 5 Days, #15 CAP Prov: SOHAN AGUILAR APRN 08/26/21 Hydrocodone Bit/Acetaminophen (HYDROCODONE-APAP 5-325 ) 1 Tab Tablet 1 TAB PO PRN Q6HRS PRN for PAIN for 2 Days, #10 TAB 0 Refills Prov: SOHAN AGUILAR APRN 08/26/21 SOHAN AGUILAR APRN Aug 26, 2021 18:33 BHARATI HENDRICKS DO Aug 27, 2021 18:40
[2021-08-26 18:51] VITALS: BP 107/56
== END 2021-08-26 18:58 | disposition home or self-care (01) ==
LOC: ER 11:51
DX: S80.862A Insect bite (nonvenomous), left lower leg, initial encounter (principal); F17.200 Nicotine dependence, unspecified, uncomplicated; Z88.1 Allergy status to other antibiotic agents; W57.XXXA Bitten or stung by nonvenomous insect and other nonvenomous arthropods, initial encounter; Y93.89 Activity, other specified; Y92.89 Other specified places as the place of occurrence of the external cause; Y99.8 Other external cause status
CPT/HCPCS: 99283